=== PATIENT | female | born 1940 | race Caucasian/White ===

== ENCOUNTER → 2016-12-22 | Outpatient (CLI) | payer MEDICARE ==
[~2016-12-22] MED LIST: AMLO5TAB2 PO; ASPI-84 PO; CLD600T PO; ENAL20TA PO; EST.625T PO; FENO145T2 PO; GLUC500C2 PO; HCT25T PO; MULT-608 PO; OMEP20CA12 PO; OMG1KC PO; PARO10TA21 PO; PRAV10TA PO
--- NOTE | 2016-12-22 17:27 | ECHOCARDIOGRAPHY REPORT ---
DATE OF SERVICE: 12/22/2016 MEASUREMENT: LVID end diastolic 4.6, IVS thickness 1.3, LVPW thickness 0.9 cm, left atrial diameter 3.7, ejection fraction 60%. FINDINGS: 1. Technical quality is good. 2. The left ventricle is normal in size with normal contractility, systolic function appeared to be normal, estimated ejection fraction 60%. Diastolic dysfunction is suggested by Doppler. 3. The left atrium is normal in size. No clot or thrombus were seen within the left atrium. 4. The right atrium and right ventricle are normal in size. No clot or thrombus were seen within the right side. 5. Mitral valve is normal in morphology with mild mitral regurgitation noted by color Doppler flow. No mitral valve prolapse. No mitral valve stenosis. 6. Aortic valve is trileaflet with normal opening and closing pattern, no significant aortic valve stenosis was noted mild aortic regurgitation noted by color Doppler flow. 7. Tricuspid valve is normal in morphology with mild tricuspid regurgitation noted by color Doppler flow. Doppler across the tricuspid valve estimated pulmonary artery pressure of 13+ right atrial pressure. 8. Pulmonic valve is functioning normally. 9. No pericardial effusion. CONCLUSION: 1. Normal left ventricular size and systolic function, estimated ejection fraction 60%. Diastolic dysfunction is suggested by Doppler. 2. Mild mitral and tricuspid regurgitation. 3. Mild aortic regurgitation. 4. Estimated pulmonary artery pressure of 20 mmHg. Job ID: [id number] DocumentID: [id number] Dictated Date: 12/22/2016 15:37:44 Sales Attendant Date: 12/22/2016 16:16:18 Dictated By: JERSON ELDER MD
== END ==
LOC: CARD 07:52
PROVIDERS: ATTEND Internal Medicine Cardiovascular Disease
DX: I10 Essential (primary) hypertension (principal); E78.2 Mixed hyperlipidemia; I65.23 Occlusion and stenosis of bilateral carotid arteries; I08.3 Combined rheumatic disorders of mitral, aortic and tricuspid valves
CPT/HCPCS: 93306

== ENCOUNTER → 2017-07-03 | Outpatient (CLI) | payer MEDICARE ==
--- NOTE | 2017-07-03 11:40 | Diagnostic Imaging Report ---
EXAMINATION: Renal Doppler vascular ultrasound. INDICATION: Hypertension. FINDINGS: The right kidney is 9.7 and the left kidney is 10.5 cm in length. No hydronephrosis or focal lesion is seen. The renal artery velocities on the right side are 63, 89, and 43 cm/s from proximal to distal and on the left are 81, 70, and 75 cm/s. The resistive index range in the right kidney is 0.63 to 0.72 and on the right side is 0.67 to 0.74. The left kidney demonstrates a 1.7 cm simple cyst. IMPRESSION: No evidence of renal artery stenosis. Dictated by: Dictated on workstation # [id number]
== END ==
LOC: RAD 07:56
PROVIDERS: ATTEND Physician Assistant
DX: I10 Essential (primary) hypertension (principal); I35.1 Nonrheumatic aortic (valve) insufficiency; I65.23 Occlusion and stenosis of bilateral carotid arteries; E78.2 Mixed hyperlipidemia
CPT/HCPCS: 93975

== ENCOUNTER → 2018-06-25 | Outpatient (CLI) | payer MEDICARE ==
--- NOTE | 2018-06-26 08:06 | Diagnostic Imaging Report ---
INDICATION: Screening. EXAMINATION: Digital mammogram bilateral screening with 3-D tomosynthesis. This study was compared to the prior exam of 05/22/2017, 05/09/2016 and 05/06/2015. At this time, there are no current complaints. The current study was also evaluated with a Computer Aided Detection (CAD) system. FINDINGS: The fibroglandular tissue in both breasts is heterogeneously dense. This does limit the sensitivity of this exam. Overall, there does not appear to have been any significant change when compared to the prior study. No primary or secondary sign of malignancy is noted. IMPRESSION: There is no radiographic evidence for malignancy. ACR BI-RADS Category 1: Negative. Result letter will be mailed to the patient. Note: At least 10% of breast cancer is not imaged by mammography. Dictated by: Dictated on workstation # [id number]
== END ==
LOC: RAD 10:02
PROVIDERS: ATTEND Obstetrics & Gynecology
DX: Z12.31 Encounter for screening mammogram for malignant neoplasm of breast (principal)
CPT/HCPCS: 77067

== ENCOUNTER → 2019-02-11 | Outpatient (CLI) | payer MEDICARE ==
--- NOTE | 2019-02-11 08:43 | Diagnostic Imaging Report ---
INDICATION: Abdominal pain. Gallbladder sonography performed in the routine fashion. FINDINGS: The liver shows normal echogenicity with no focal lesions. There are gallstones in the gallbladder, including a 1.3 cm stone layering posteriorly. The gallbladder wall is not appreciably thickened. Common bile duct could not be visualized. Pancreas was unremarkable to the extent seen, although the tail was not well visualized. Right kidney measured 10.8 cm in length. There is no ascites. Portal vein is patent. IMPRESSION: There is cholelithiasis, without significant gallbladder wall thickening. Common duct could not be well visualized. There is no other abnormality. Dictated by: Dictated on workstation # [id number]
== END ==
LOC: RAD 07:00
PROVIDERS: ATTEND Internal Medicine
DX: K80.20 Calculus of gallbladder without cholecystitis without obstruction (principal)
CPT/HCPCS: 76705

== ENCOUNTER 2019-02-26 14:39 | Outpatient (CLI) | payer MEDICARE ==
[~2019-02-26] VITALS: Ht 167.6 cm; Wt 70.3 kg
[2019-02-26] MEDS ORDERED: ASPI-999 PO (14:49)
[2019-02-26] MEDS ORDERED: PRAV20TA3 PO (14:49)
[2019-02-26] MEDS ORDERED: HYDR12.56 PO (14:49)
[2019-02-26] MEDS ORDERED: FENO145T37 PO (14:49)
[2019-02-26] MEDS ORDERED: PARO10TA3 PO (14:49)
[2019-02-26] MEDS ORDERED: OMG1KC PO (14:49)
[2019-02-26] MEDS ORDERED: METO-387 PO (14:49)
[2019-02-26] MEDS ORDERED: AMLO10TA7 PO (14:49)
[2019-02-26] MEDS ORDERED: GLUC750C PO (14:49)
[2019-02-26] MEDS ORDERED: OMEP20TA7 PO (14:49)
[2019-02-26] MEDS ORDERED: LISI40TA PO (14:49)
[2019-02-26] MEDS ORDERED: CALC-903 PO (14:49)
[2019-02-26] MEDS ORDERED: MULT1CAP27 PO (14:49)
[2019-02-27] MEDS ORDERED: HYDR-34 PO (11:48)
== END 2019-02-26 15:04 | disposition home or self-care (01) ==
LOC: PREOP 14:39
PROVIDERS: ATTEND Surgery
DX: Z01.818 Encounter for other preprocedural examination (principal)

== ENCOUNTER 2019-02-27 08:54 | Day surgery (SDC) | payer MEDICARE ==
[2019-02-27] VITALS (12 sets, daily range): BP systolic 143–175; BP diastolic 66–79
[~2019-02-27] VITALS: Ht 167.6 cm; Wt 70.3 kg
[~2019-02-27 08:54] MED LIST changes: +AMLO10TA7 PO; +ASPI-999 PO; +CALC-903 PO; +FENO145T37 PO; +GLUC750C PO; +HYDR12.56 PO; +LISI40TA PO; +METO-387 PO; +MULT1CAP27 PO; +OMEP20TA7 PO; +PARO10TA3 PO; +PRAV20TA3 PO
[2019-02-27] MEDS ORDERED: ceFAZolin 2 GM/50 ML NS 50 ML IV ONE (10:15)
[2019-02-27] MEDS ORDERED: CATHETER FLUSH 10 ML SYR IV PRN (10:30)
[2019-02-27] MEDS ORDERED: SCOPOLAMINE 1.5 MG (TRANSDERM-SCOP) PATCH TOP ONE (10:30)
[2019-02-27] MEDS ORDERED: ONDANSETRON 4 MG/2 ML (SDV) Z0FRAN IV ONE (10:30)
[2019-02-27] MEDS ORDERED: FAMOTIDINE 20MG/2ML IV (PEPCID) IV ONE (10:30)
--- NOTE | 2019-02-27 10:48 | NUR ---
Initial visit with the pt and her . They are members of [facility] in [place] and their Meat Packager, Meagan Castrejon, visited this morning for support. I offered prayer with them and engaged in active listening and compassionate presence.
[2019-02-27] MEDS: LACTATED RINGERS 1,000 ML IV PRN ×2 (11:06→13:00)
[2019-02-27] MEDS ORDERED: BUP/EPI 0.5% 1:200,000 (MARCAINE) 10ML VIAL IJ ONE (11:36)
[2019-02-27] MEDS ORDERED: LIDOCAINE PF 2% 5 ML (XYLOCAINE) VIAL ONE (11:41)
[2019-02-27] MEDS ORDERED: fentaNYL INJECTION 100 MCG/2 ML AMP ONE (11:41)
[2019-02-27] MEDS ORDERED: proPOfol 200 MG/20 ML (DIPRIVAN) VIAL IV ONE (11:41)
[2019-02-27] MEDS ORDERED: ONDANSETRON 4 MG/2 ML (SDV) Z0FRAN ONE (11:41)
[2019-02-27] MEDS ORDERED: MIDAZOLAM 2 MG/2 ML (VERSED) VIAL ONE (11:42)
[2019-02-27] MEDS ORDERED: ROCURONIUM 10 MG/ML 5 ML SYRINGE IV ONE (11:43)
--- NOTE | 2019-02-27 11:46 | Progress Note-Pre Operative ---
Pre-Operative Progress Note H&P Reviewed The H&P was reviewed, patient examined and no changes noted. Date Seen by Provider: Feb 27, 2019 Time Seen by Provider: 11:40 Date H&P Reviewed: Feb 27, 2019 Time H&P Reviewed: 11:40 Pre-Operative Diagnosis: chronic calculous cholecystitis JASMINA BOWEN MD Feb 27, 2019 11:46
[2019-02-27] MEDS ORDERED: DEXAMETHASONE 10 MG/ML (DECADRON) 1 ML VIAL ONE (11:47)
[2019-02-27] MEDS ORDERED: SEVOFLURANE (ULTANE) 15 ML INHAL SOLN ONE ×5 (11:47→12:46)
[2019-02-27] MEDS ORDERED: HYDR-34 PO (11:48)
--- NOTE | 2019-02-27 11:49 | Discharge Inst-Surgical ---
D/C Lap Instructions-ANDRÉS New, Converted, or Re-Newed RX: RX on Chart Follow Up Appt in 2 weeks Activity as tolerated No driving for 24 hours No driving while on pain medications Incentive Spirometry use every 2 hours while awake Regular Diet Symptoms to Report: Fever over 101 degree F, Nausea/Vomiting Infection Signs and Symptoms to report: Increased redness, Foul odor of wound, Increased drainage Bathing instructions: May shower Operative Area Clean/Dry; Keep incision clean/dry If any problems/questions: Contact your physician or go to Emergency Room JASMINA BOWEN MD Feb 27, 2019 11:49
[2019-02-27] MEDS ORDERED: morphine INJ 10 MG/ML 1ML (SYR OR VIAL) IVP PRN ×2 (12:00)
[2019-02-27] MEDS ORDERED: ACETAMINOPHEN 325 MG TABLET PO PRN (12:00)
[2019-02-27] MEDS ORDERED: oxyCODONE/APAP 5/325MG (PERCOCET 5) TABLET PO PRN (12:00)
[2019-02-27] MEDS ORDERED: ONDANSETRON 4 MG/2 ML (SDV) Z0FRAN IVP PRN ×2 (12:00→13:30)
[2019-02-27] MEDS ORDERED: GLYCOPYRROLATE 0.2 MG/ML (ROBINUL) 2 ML VIAL ONE (12:46)
[2019-02-27] MEDS ORDERED: NEOSTIGMINE 3 MG/3 ML VIAL ONE (12:46)
[2019-02-27] MEDS ORDERED: SUGAMMADEX 500 MG/5 ML VIAL (BRIDION) IV ONE (13:01)
[2019-02-27] MEDS ORDERED: PROMETHAZINE INJ 25 MG/ML (PHENERGAN) AMP IVP ONE (13:30)
[2019-02-27] MEDS ORDERED: MEPERIDINE (DEMEROL) INJ 50 MG/ML IVP ONE (13:30)
[2019-02-27] MEDS ORDERED: fentaNYL INJECTION 100 MCG/2 ML AMP IVP ONE (13:30)
--- NOTE | 2019-02-27 13:33 | Anesthesia-General Post-Op ---
General Patient Condition Mental Status/LOC: Same as Preop Cardiovascular: Satisfactory Nausea/Vomiting: Absent Respiratory: Satisfactory Pain: Controlled Complications: Absent Post Op Complications Complications None Follow Up Care/Instructions Patient Instructions None needed. Anesthesia/Patient Condition Patient Condition Patient is doing well, no complaints, stable vital signs, no apparent adverse anesthesia problems. No complications reported per nursing. KARLA DOCKERY CRNA Feb 27, 2019 13:33
--- NOTE | 2019-02-27 15:20 | NUR ---
REPORT GIVEN TO ROSE MARIE RUIZ RN, PT SITTING UP IN CHAIR WITH AT SIDE.
--- NOTE | 2019-02-27 18:26 | Progress Note-Post Operative ---
Post-Operative Progess Note Surgeon (s)/Dramatic Director (s) Surgeon JASMINA BOWEN MD Dramatic Director: brittany nicolas ORACLE ANALYST Pre-Operative Diagnosis chronic calculous cholecystitis Post-Operative Diagnosis same Procedure & Operative Findings Date of Procedure 02/27/19 Procedure Performed/Findings laparoscopic cholecystectomy Anesthesia Type get Estimated Blood Loss Estimated blood loss (mL): minimal Specimens/Packing Specimens Removed gallbladder JASMINA BOWEN MD Feb 27, 2019 18:26
--- NOTE | 2019-02-27 23:46 | OPERATIVE REPORT ---
DATE OF SERVICE: ATTENDING PRIMARY CARE PHYSICIAN: Hung Keller MD PREOPERATIVE DIAGNOSIS: Chronic calculous cholecystitis. POSTOPERATIVE DIAGNOSIS: Chronic calculous cholecystitis. PROCEDURE: Laparoscopic cholecystectomy. SURGEON: Jasmina Bowen MD GRANTS ANALYST: Lamont Waller APRN ANESTHESIA: General endotracheal. ESTIMATED BLOOD LOSS: Minimal. FINDINGS: Multiple moderate size gallstones. DISPOSITION: The patient tolerated the procedure well. INDICATIONS: The patient is a 78-year-old female who has had issues with back pain as well as abdominal bloating usually after meals. She underwent an ultrasound, which did show multiple gallstones. She does not report any fever or chills as well as no nausea or vomiting. DESCRIPTION OF PROCEDURE: The patient was brought to the operating room, laid supine on the table. After adequate IV pain and sedative medications and general endotracheal intubation, the abdomen was prepped and draped in standard surgical fashion. A 0.5% Marcaine with epinephrine was then used to anesthetize the overlying skin in the left upper abdominal quadrant. A small transverse skin incision made using a 15 blade. An 0 silk suture was applied to the medial aspect of the incision for retraction and a Veress needle inserted with a low opening pressure of 0 mmHg and the abdomen was then insufflated to 15 mmHg pressure. The Veress needle removed and a 5 mm Xcel trocar placed followed by a 5 mm 45-degree angle laparoscope visualizing the peritoneal cavity. A 4-quadrant abdominal exploration was performed. The liver, omentum, small bowel appeared normal. There is slightly distended gallbladder, no gallbladder wall thickening. Under direct visualization, we then proceeded to place a supraumbilical 10 mm port after the skin and peritoneal lining were anesthetized using 0.5% Marcaine with epinephrine and a transverse skin incision made using a 15 blade. In a similar manner, a right upper abdominal quadrant 5 mm port was placed. The patient was then placed in reverse Trendelenburg position as well as plane right side up, left side down. The fundus of the gallbladder was then retracted anteriorly and superiorly. The hepatoduodenal ligament was then opened using blunt dissection as well as cautery on hook instrument. The entire critical view of safety was identified including the triangle of Calot as well as the cystic duct and artery as the only two structures going into the gallbladder as well as the cystic plate behind the proximal gallbladder. A timeout was then taken and the cystic duct and artery were then clipped proximally, distally and cut with EndoShears. The gallbladder was then dissected off the liver bed using cautery on hook instrument with visualization of good hemostasis as well as no leaking ducts of Luschka. The gallbladder was removed through the 10 mm port site using an EndoCatch bag. The 10 mm port site fascia and peritoneum were then closed under direct visualization using a Anthony-Meseret device and 0 Vicryl suture. The abdomen was desufflated and the remaining ports removed. All skin incisions were closed using 4-0 Monocryl running subcuticular sutures. Wounds were then cleaned and covered with Dermabond. The patient tolerated the procedure well. We will start IV and oral pain medication as well as a clear liquid diet. Once she is tolerating clears, has good pain control with oral pain medication and is ambulating well, we will discharge her home. Job ID: [id number] DocumentID: [id number] Dictated Date: 02/27/2019 13:01:11 Implementation Engineer Date: 02/27/2019 21:28:33 Dictated By: JASMINA BOWEN MD
== END 2019-02-27 15:45 | disposition home or self-care (01) ==
LOC: SDC 08:54
PROVIDERS: ATTEND Surgery
DX: K80.10 Calculus of gallbladder with chronic cholecystitis without obstruction (principal); Z11.2 Encounter for screening for other bacterial diseases; I10 Essential (primary) hypertension; E78.00 Pure hypercholesterolemia, unspecified; K21.9 Gastro-esophageal reflux disease without esophagitis; F41.9 Anxiety disorder, unspecified; Z79.899 Other long term (current) drug therapy; Z79.82 Long term (current) use of aspirin
CPT/HCPCS: 87081; 88304

== ENCOUNTER → 2019-06-02 | Outpatient (CLI) | payer MEDICARE ==
[~2019-06-02] MED LIST changes: +HYDR-34 PO
--- NOTE | 2019-06-02 16:45 | Diagnostic Imaging Report ---
PROCEDURE: CT urinary tract, rule out kidney stone. TECHNIQUE: Multiple contiguous axial images were obtained through the abdomen and pelvis without the use of intravenous contrast. Auto Exposure Controls were utilized during the CT exam to meet ALARA standards for radiation dose reduction. INDICATION: Right flank pain and hematuria. FINDINGS: Note is made of coronary artery calcification. Unenhanced images of the liver and spleen reveal no focal abnormality. Gallbladder surgically absent. There is no evidence of pancreatic or adrenal gland abnormality. There is mild hydronephrosis, greater on the right. Note is made of an approximately 1.5 cm exophytic nodule arising from the lateral aspect of left kidney which is most compatible with a cyst. There is dilatation of the right ureter to the level of an approximately 0.3 cm ureterovesical junction calculus. This appears to protrude into the bladder lumen and could be within a ureterocele. There is no evidence of focal inflammation in the abdomen or pelvis. No free fluid is identified. Note is made of donut-shaped pessary device posterior to the bladder. There is advanced lumbar degenerative change with right convexity curvature. IMPRESSION: 0.3 cm calculus at the right ureterovesical junction resulting in mild right hydronephrosis and hydroureter. Otherwise, no acute abnormality seen within the abdomen or pelvis. Dictated by: Dictated on workstation # [id number]
== END ==
LOC: RAD 15:22
PROVIDERS: ATTEND Physician Assistant
DX: N20.0 Calculus of kidney (principal); N13.30 Unspecified hydronephrosis; N13.4 Hydroureter
CPT/HCPCS: 74176

== ENCOUNTER → 2019-07-23 | Outpatient (CLI) | payer MEDICARE ==
--- NOTE | 2019-07-23 12:11 | Diagnostic Imaging Report ---
INDICATION: Routine screening. Comparison is made with prior mammograms from 06/25/2018 and 05/22/2017. 2-D and 3-D bilateral screening mammography was performed. The current study was also evaluated with a Computer Aided Detection (CAD) system. 3-D tomosynthesis was also performed and reviewed. FINDINGS: Both breasts remain heterogeneously dense, limiting the sensitivity of mammography. Scattered benign-appearing parenchymal and vascular calcifications are again noted. Asymmetric nodular density in the upper right breast is stable. No new mass or malignant-appearing microcalcifications are seen. Axillae are unremarkable. IMPRESSION: No mammographic features suspicious for malignancy are identified. ACR BI-RADS Category 2: Benign findings. Result letter will be mailed to the patient. Note: At least 10% of breast cancer is not imaged by mammography. Dictated by: Dictated on workstation # [id number]
== END ==
LOC: RAD 10:28
PROVIDERS: ATTEND Obstetrics & Gynecology
DX: Z12.31 Encounter for screening mammogram for malignant neoplasm of breast (principal)
CPT/HCPCS: 77067

== ENCOUNTER → 2020-10-26 | Outpatient (CLI) | payer MEDICARE ==
[~2020-10-26] MED LIST changes: +AMLO-251 PO; -AMLO10TA7 PO; +FENO145T26 PO; -FENO145T37 PO; -LISI40TA PO; +LISI40TA9 PO; -METO-387 PO; +MTP25TSR PO
[2020-10-26 15:17] LABS: ALBUMIN 4.2 GM/DL (3.2-4.5); POTASSIUM 3.6 MMOL/L (3.6-5.0)
[2020-10-26 15:18] LABS: CALCIUM 9.5 MG/DL (8.5-10.1)
[2020-10-26 15:19] LABS: TOTAL PROTEIN 6.8 GM/DL (6.4-8.2)
[2020-10-26 15:21] LABS: BILIRUBIN,TOTAL 0.4 MG/DL (0.1-1.0)
[2020-10-26 15:23] LABS: CREATININE SERUM 1.02 MG/DL (0.60-1.30)
== END ==
LOC: CARD 15:00
PROVIDERS: ATTEND Physician Assistant
DX: I11.9 Hypertensive heart disease without heart failure (principal); I08.0 Rheumatic disorders of both mitral and aortic valves; E78.2 Mixed hyperlipidemia
CPT/HCPCS: 36415; 80053; 80061; 93306

== ENCOUNTER → 2021-05-20 | Outpatient (CLI) | payer MEDICARE ==
--- NOTE | 2021-05-20 16:46 | Diagnostic Imaging Report ---
HISTORY: Nausea, hypertension COMPARISON: CT from 06/02/2019 TECHNIQUE: Frontal view of the abdomen FINDINGS: No bowel distention is seen. There is no large collection of free air. There is a small amount of stool in the colon. Phleboliths seen in the pelvis. There are severe degenerative changes with moderate dextroscoliosis in the lumbar spine. IMPRESSION: 1. No bowel obstruction or large collection of free air. Dictated by: Dictated on workstation # [id number]
== END ==
LOC: RAD 14:03
PROVIDERS: ATTEND Nurse Practitioner Family
DX: M54.59 Other low back pain (principal); E78.49 Other hyperlipidemia; R11.0 Nausea; R31.29 Other microscopic hematuria; R03.0 Elevated blood-pressure reading, without diagnosis of hypertension
CPT/HCPCS: 74018

== ENCOUNTER → 2021-08-04 | Outpatient (CLI) | payer MEDICARE | LOC: LABNPT 08:00 | PROVIDERS: ATTEND Internal Medicine | DX: U07.1 COVID-19 (principal) | CPT/HCPCS: 87635 ==

== ENCOUNTER → 2022-11-23 | Outpatient (CLI) | payer MEDICARE ==
[~2022-11-23] MED LIST changes: +OMEP20TA56 PO; -OMEP20TA7 PO
== END ==
LOC: CARD 08:30
PROVIDERS: ATTEND Internal Medicine Cardiovascular Disease
DX: I08.0 Rheumatic disorders of both mitral and aortic valves (principal); I10 Essential (primary) hypertension
CPT/HCPCS: 93306

== ENCOUNTER → 2023-01-03 | Outpatient (CLI) | payer MEDICARE ==
[~2023-01-03] VITALS: Ht 167 cm; Wt 72.0 kg
[~2023-01-03] MED LIST changes: +CATHETER FLUSH 10 ML SYR IVP PRN; +REGADENOSON 0.4 MG/5 ML SYR (LEXISCAN) IV ONE
[2023-01-03 09:32] VITALS: BP 146/74
--- NOTE | 2023-01-03 14:07 | Cardiology Stress Test Report ---
Stress Test Report Date of Procedure/Referring: Date of Procedure: Jan 03, 2023 PCP Polly Patricia MD Admitting Physician Admitting Physician: Attending Physician: Dolores Ann MD Indications: CP Baseline Heart Rate: 57 Baseline Blood Pressure: Blood Pressure Systolic: 146 Blood Pressure Diastolic: 74 Baseline Vitals Vital Signs Date Time Temp Pulse Resp B/P (MAP) Pulse Ox O2 Delivery O2 Flow Rate FiO2 01/03/23 09:32 59 146/74 (98) Baseline EKG: Baseline EKG: NSR Summary After explaining the procedure to the patient, she signed a consent and then brought to the stress nuclear laboratory. Patient received 0.4 mg Lexiscan for stress test, ECG, heart rate and blood pressure were monitored continuously. Resting and stress dose of radio tracer were injected, imaging was acquired and reviewed in short axis, horizontal long axis and vertical long axis views. TID: 1.05 SSS: 9 SDS: 8 EF: 56 Patient tolerated Lexiscan well Reversible ischemia involving the mid to apical anterior wall and anterior lateral wall Normal left ventricular size, ejection fraction 56% Copy Copies To 1: POLLY PATRICIA MD, BASHAR J MD Jan 03, 2023 14:07
== END ==
LOC: CARD 08:03
PROVIDERS: ATTEND Internal Medicine Cardiovascular Disease
DX: I10 Essential (primary) hypertension (principal); I25.10 Atherosclerotic heart disease of native coronary artery without angina pectoris
CPT/HCPCS: 78452; 93017; A9502

== ENCOUNTER 2023-01-17 10:53 | Day surgery (SDC) | payer MEDICARE ==
[2023-01-17] VITALS (8 sets, daily range): BP systolic 117–169; BP diastolic 54–103
[~2023-01-17] VITALS: Ht 165.1 cm; Wt 69.4 kg
[~2023-01-17 10:53] MED LIST changes: -CATHETER FLUSH 10 ML SYR IVP PRN; -REGADENOSON 0.4 MG/5 ML SYR (LEXISCAN) IV ONE
[2023-01-17] MEDS ORDERED: LIDOCAINE 1% INJ 20 ML VIAL ONE (11:22)
[2023-01-17] MEDS ORDERED: NS IV 1000 ML 1,000 ML ONE (11:22)
[2023-01-17] MEDS ORDERED: HEParin (CATH LAB) 2,000 ML IV ONE (11:22)
[2023-01-17] MEDS ORDERED: NS IV 1000 ML 1,000 ML IV SCH ×2 (11:30→15:00)
[2023-01-17 11:45] LABS: HEMATOCRIT 44 % (35-52); MEAN CORPUSCULAR HEMOGLOBIN 32 pg (25-34); MEAN CORPUSCULAR HGB CONC 34 g/dL (32-36); MEAN CORPUSCULAR VOLUME 94 fL (80-99); MEAN PLATELET VOLUME 11.6 fL (9.0-12.2); PLATELET COUNT 234 10^3/uL (130-400); WHITE BLOOD COUNT 9.1 10^3/uL (4.3-11.0)
[2023-01-17 12:00] LABS: ALBUMIN 4.3 GM/DL (3.2-4.5); BILIRUBIN,TOTAL 0.6 MG/DL (0.1-1.0); CALCIUM 10.4 MG/DL (8.5-10.1); CREATININE SERUM 0.79 MG/DL (0.60-1.30); POTASSIUM 3.8 MMOL/L (3.6-5.0)
[2023-01-17] MEDS ORDERED: METO50TA7 PO (12:06)
[2023-01-17] MEDS ORDERED: NITRO DRIP 25000 MCG/D5W 250 ML IV ONE (13:40)
[2023-01-17] MEDS ORDERED: MIDAZOLAM 5 MG/5 ML (VERSED) VIAL ONE (13:40)
[2023-01-17] MEDS ORDERED: HEParin 1000 UNIT/ML (10ML VIAL) FOR BOLUS ONE (13:40)
[2023-01-17] MEDS ORDERED: VERAPAMIL 5 MG/2 ML (CALAN) VIAL IV ONE (13:40)
[2023-01-17] MEDS ORDERED: fentaNYL INJ 100 MCG/2 ML AMP ONE (13:40)
--- NOTE | 2023-01-17 14:48 | Cardiac Procedure Note-CS/ASA ---
Pre-Procedure Note Pre-Op Procedure Note Date of Available H&P: Jan 04, 2023 Date H&P Reviewed: Jan 17, 2023 Time H&P Reviewed: 13:15 History & Physical: H&P Reviewed, No changes noted Moderate Sedation PreProcedure ASA Score 3 Airway Lungs Heart ASA score ASA 1: a normal healthy patient ASA 2: a patient with a mild systemic disease (mid diabetes, controlled hypertension, obesity ASA 3: a patient with a severe systemic disease that limits activity (angina, COPD, prior Myocardial infarction) ASA 4: a patient with an incapacitating disease that is a constant threat to life (CHF, renal failure) ASA 5: a moribund patient not expected to survive 24 hrs. (ruptured aneurysm) ASA 6: a declared brain- patient whose organs are being harvested. For emergent operations, add the letter E after the classification Mallampati Classification Grade 1 Sedation Plan Analgesia, Amnesia, Plan communicated to team members The patient is an appropriate candidate to undergo the planned procedure, sedation, and anesthesia. The patient immediately re-assessed prior to indication. PAUL YAO MD FACP FAC CCDS Jan 17, 2023 14:48
--- NOTE | 2023-01-17 14:55 | Cardiac Cath Report ---
CARDIAC CATHETERIZATION DATE OF PROCEDURE: 01-17-23 INDICATION: Abnormal stress test HISTORY: The patient is a 82 year old female who underwent MPI with Dr Ann on 01-03-23 and was found to have anterior and apical ischemia PROCEDURES PERFORMED: 1. Cor angio 2. LHC 3. Aortic root angio PROCEDURE DESCRIPTION: After informed consent and in the fasting state, left heart catheterization was performed through the R radial artery utilizing a 6 Congolese system by percutaneous approach. 6F TIG for LCA. 5F pigtail for LHC and for aortic root angion (that was done to locate the RCA). All catheters were exchanged over a guidewire. Aortic root angio: - Done to locate RCA. It did show RCA that was not found to have significant disease on aortic root and on subsequent selective angio. No ascending aortic aneurysm or dissection or aortic regurgitation. Aortic valve leaflets showed good excursion HEMODYNAMICS: LVEDP 17 mmHg. No significant pressure gradient on pullback across the aortic valve CORONARY ANGIOGRAPHY: Left main coronary artery: Ok Left anterior descending coronary artery: Diffuse mild to moderate disease with stenoses of up to 30-40% Left circumflex coronary artery: Ok Right coronary artery: Dominant. Mild plaques IMPRESSION: 1. Mild CAD 2. LVEDP 17 mmHg Plan Med therapy and risk factor modification and outpatient f/u. PAUL YAO MD FACP FAC CCDS Jan 17, 2023 14:55
--- NOTE | 2023-01-17 14:59 | Discharge Inst-Cardiology ---
Discharge Inst-Cardiac Discharge Medications Continued Medications: Amlodipine Besylate (Amlodipine Besylate) 10 Mg Tablet 10 MG PO DAILY, TAB Aspirin (Aspirin) 81 Mg Tab.chew 81 MG PO DAILY, TAB Calcium Carbonate/Vitamin D3 (Calcium 600 + Vit D3 Caplet) 600 Mg Calcium-20 Mcg (800 Unit) Tablet 2 EACH PO DAILY, TAB Fenofibrate Nanocrystallized (Fenofibrate) 145 Mg Tablet 145 MG PO DAILY, TAB Hydrochlorothiazide (Hydrochlorothiazide) 12.5 Mg Tablet 25 MG PO DAILY, TAB Lisinopril (Lisinopril) 40 Mg Tablet 40 MG PO DAILY, TAB Metoprolol Succinate (Metoprolol Succinate) 50 Mg Tab.er.24h 50 MG PO HS, TAB Multivitamin (Multivitamins) 1 Each Capsule 1 EACH PO DAILY, CAP [place] 3 Polyunsat Fatty Acids (Fish Oil 1,000 mg Capsule) 1,000 Mg Cap 2000 MG PO DAILY, CAP TAKE 2 PILLS DAILY Omeprazole (Omeprazole) 20 Mg Tablet.dr 20 MG PO DAILY, TAB Paroxetine HCl (Paroxetine HCl) 10 Mg Tablet 5 MG PO DAILY, TAB Pravastatin Sodium (Pravastatin Sodium) 20 Mg Tablet 20 MG PO DAILY, TAB PAUL YAO MD FACP [facility] CCDS Jan 17, 2023 14:59
[2023-01-17] MEDS ORDERED: PATIENT MAY USE OWN MEDS, ALL PO SCH (15:00)
--- NOTE | 2023-01-17 15:00 | Discharge Inst-Post CATH ---
Discharge Inst-CATH/EP Post Cardiac Cath/EP D/C Inst Follow Up/Plan F/u with Dr Ann in one month F/u with family physician regarding mildly elevated calcium seen on blood work of 01/17/23 ACTIVITY * Go Home directly and rest. * Limit activity of the leg (or wrist if it was used) for 7 days including aerobics, swimming, jogging, bicycling, etc. * Restrict stair-climbing for 7 days if possible, if not, climb up with your non-cath leg, then bring together on the same step. * Avoid lifting, pushing, pulling or excessive movement of the affected extremity for 7 days. * Customary sexual activity may be resumed after 2 days-use caution not to use a position that strains or causes pain to the affected extremity. * No driving for 24 hours. * NO SMOKING. * Avoid straining for bowel movements for 7 days. * Gentle walking on level ground is allowed. * Returning to work will depend on the type of procedure and the results. Your doctor will discuss this with you. CALL YOUR DOCTOR FOR ANY OF THE FOLLOWING: *If bleeding from the puncture site occurs- Apply gentle pressure to site with clean cloth and call your doctor or EMS. * If a knot or lump forms under the skin, increases in size, or causes pain. * If bruising appears to be worsening or moving further down your leg instead of disappearing. * Temperature above 101 F. CARE OF YOUR GROIN INCISION; * Bruising or purple discoloration of the skin near the puncture site is common. * You may shower only, no bathtub bathing for 5 days. Be careful to avoid slipping as your leg may feel stiff. * If a closure device was used on your femoral artery, please see the attached guide regarding care of the device and your leg. * Leave dressing on FOR 24 hours. CARE OF YOUR WRIST INCISION; * Bruising or purple discoloration of the skin near the puncture site is common. * You may shower. * DO NOT submerge wrist. * Leave dressing on FOR 24 hours. PAUL YAO MD [facility] Jan 17, 2023 15:00
== END 2023-01-17 17:15 ==
LOC: CATH 10:53 → SDC 15:29 → CATH 17:15
PROVIDERS: ATTEND Internal Medicine Cardiovascular Disease
DX: I25.10 Atherosclerotic heart disease of native coronary artery without angina pectoris (principal); I10 Essential (primary) hypertension; I65.29 Occlusion and stenosis of unspecified carotid artery; E78.2 Mixed hyperlipidemia; R60.0 Localized edema; I35.1 Nonrheumatic aortic (valve) insufficiency; I65.23 Occlusion and stenosis of bilateral carotid arteries; Z79.82 Long term (current) use of aspirin
CPT/HCPCS: 80053; 80061; 85027; 85610; 85730; 87081; 93005; 93458; 93567; C1769; C1894; 36415